=== PATIENT | male | born 1950 | race African-American/Black ===

== ENCOUNTER 2016-09-13 14:56 | Emergency (ER) | payer OTHER, SELFPAY ==
[~2016-09-13 14:56] MED LIST: ALPRAZOLAM0.5 M2 PO; LORAZEPAM0.5 MG PO; NORCO 10/3251 TAB PO; NORCO 5/325 TAB1 TAB PO; PHENERGAN25 MG PO
[2016-09-13] MEDS ORDERED: HYDROCODON-ACE1 EA16 PO (15:18)
== END 2016-09-13 17:55 ==
LOC: EDMED 14:56
DX: G43.909 Migraine, unspecified, not intractable, without status migrainosus (principal); I10 Essential (primary) hypertension; Z90.89 Acquired absence of other organs; Z79.899 Other long term (current) drug therapy; F17.210 Nicotine dependence, cigarettes, uncomplicated
CPT/HCPCS: J1200; J1885; J2765; J7030

== ENCOUNTER 2016-10-04 21:01 | Inpatient (IN) | payer OTHER ==
[~2016-10-04 21:01] MED LIST changes: +HYDROCODON-ACE1 EA16 PO
[2016-10-04 21:24] LABS: BASO % 0.1 % (0-2); CARBON DIOXIDE-VENOUS 27 mmol/L (21-33); CREATININE 1.11 mg/dl (0.67-1.17); EOS % 0.9 % (0-7); EOSINOPHIL ABSOLUTE COUNT 0.1 tho/cmm (0.0-0.7); GLUCOSE 106 mg/dl (65-120); HCT-HEMATOCRIT 42.6 % (36.0-53.5); HGB-HEMOGLOBIN 14.8 gm/dl (13.5-17.0); IMMATURE GRANULOCYTES ABSOLUTE 0.03 tho/cmm (0-0.03); IMMATURE GRANULOCYTES PERCENT 0.3 % (0-0.3); LYMPH % 26.1 % (20-45); LYMPH ABSOLUTE COUNT 2.5 tho/cmm (0.8-4.5); MCH (MEAN CORPUSCULAR HGB) 29.6 pg (28.0-32.0); MCHC MEAN CORPUSCULAR HGB CONC 34.7 % (32.0-36.0); MCV (MEAN CELL VOLUME) 85.2 fl (82.0-96.0); MEAN PLATELET VOLUME 9.9 cmc (9.4-12.4); MONO % 6.9 % (0-12); MONOCYTE ABSOLUTE COUNT 0.7 tho/cmm (0.0-1.2); NEUTROPHIL ABSOLUTE COUNT 6.2 tho/cmm (1.6-8.0); NEUTROPHIL-AUTOMATED 6.2 tho/cmm (1.6-8.0); NEUTROPHILS % 65.7 % (40-80); PLATELET COUNT 202 tho/cmm (150-450); POTASSIUM 3.7 mmol/L (3.5-5.3); RED CELL DISTRIBUTION WIDTH 14.1 % (12.4-16.4); SODIUM 137 mmol/L (135-146); WHITE BLOOD COUNT 9.4 tho/cmm (4.0-10.0); eGFR VALUE FOR BLACK 81 mL/Min
[2016-10-04 21:27] LABS: PROTHROMBIN TIME 11.8 SECONDS (9.0-13.6)
[2016-10-04 21:33] LABS: ANION GAP 11 mmol/L (0-20); BLOOD UREA NITROGEN 15 mg/dl (6-24); CALCIUM 8.9 mg/dl (8.5-10.5); CHLORIDE 103 mmol/l (96-110)
[2016-10-04 21:37] LABS: MAGNESIUM 2.2 mg/dl (1.8-2.6)
[2016-10-04 21:43] LABS: ALB/GLOB RATIO 0.7 (0.8-2.0); ALBUMIN 3.3 g/dl (3.5-5.0); ALKALINE PHOSPHATASE 112 U/L (33-138); BILIRUBIN,TOTAL 0.6 mg/dl (0.0-1.5)
[2016-10-04 21:44] LABS: ALT/SGPT 25 U/L (12-78); AST/SGOT 13 U/L (10-40); ESR-ERYTHROCYTE SED RATE 8 mm/hr (0-20)
[2016-10-04 21:50] LABS: TSH-THYROID STIMULATING HORM. 2.14 uIU/ml (0.40-3.80)
[2016-10-04 23:12] LABS: URINE BILIRUBIN NEGATIVE (NEG); URINE BLOOD SMALL (NEG); URINE GLUCOSE (UA) NEGATIVE (NEG); URINE KETONE NEGATIVE (NEG); URINE LEUKOCYTE ESTERASE NEGATIVE (NEG); URINE NITRITE NEGATIVE (NEG); URINE PROTEIN SMALL (NEG)
[2016-10-04 23:13] LABS: URINE APPEARANCE SLIGHTLY HAZY; URINE COLOR YELLOW
[2016-10-04 23:25] LABS: URINE BACTERIA 1+; URINE EPITHELIAL CELLS 0-1 /[HPF] (0-10); URINE WBC 0 /[HPF] (0-5)
[2016-10-05] MEDS ORDERED: NO HOME MEDICATION (01:25)
[2016-10-06] MEDS ORDERED: PLAVIX75 M1 PO (11:35)
[2016-10-06] MEDS ORDERED: ATORVASTATIN CA80 M1 PO (11:36)
[2016-10-06] MEDS ORDERED: LOTENSIN20 M1 PO (11:37)
[2016-10-06] MEDS ORDERED: NORVASC10 M2 PO (11:37)
[2016-10-06] MEDS ORDERED: ZITHROMAX250 M1 PO (11:38)
== END 2016-10-06 13:05 | DRG 64 ==
LOC: EDMED 21:01 → EMR2 10-05 00:06 → 5EB 10-05 00:40
PROVIDERS: Emergency Medicine; ADMIT Internal Medicine
PROC: 5A09357 Assistance with Respiratory Ventilation, Less than 24 Consecutive Hours, Continuous Positive Airway Pressure (ICD-10-PCS; principal; 2016-10-05)
DX: I63.9 Cerebral infarction, unspecified (principal); J18.9 Pneumonia, unspecified organism; G81.94 Hemiplegia, unspecified affecting left nondominant side; R47.1 Dysarthria and anarthria; I10 Essential (primary) hypertension; F17.210 Nicotine dependence, cigarettes, uncomplicated; R29.810 Facial weakness
CPT/HCPCS: A9577; C8929; J0456; J0696; J1650; J7030; J7050

== ENCOUNTER 2016-10-07 11:17 | Inpatient (IN) | payer OTHER ==
[~2016-10-07 11:17] MED LIST changes: +ATORVASTATIN CA80 M1 PO; +LOTENSIN20 M1 PO; +NO HOME MEDICATION; +NORVASC10 M2 PO; +PLAVIX75 M1 PO; +ZITHROMAX250 M1 PO
[2016-10-07 12:50] LABS: BASO % 0.3 % (0-2); EOS % 1.1 % (0-7); EOSINOPHIL ABSOLUTE COUNT 0.1 tho/cmm (0.0-0.7); HCT-HEMATOCRIT 43.3 % (36.0-53.5); HGB-HEMOGLOBIN 14.9 gm/dl (13.5-17.0); IMMATURE GRANULOCYTES ABSOLUTE 0.03 tho/cmm (0-0.03); IMMATURE GRANULOCYTES PERCENT 0.5 % (0-0.3); LYMPH % 26.2 % (20-45); LYMPH ABSOLUTE COUNT 1.6 tho/cmm (0.8-4.5); MCH (MEAN CORPUSCULAR HGB) 29.3 pg (28.0-32.0); MCHC MEAN CORPUSCULAR HGB CONC 34.4 % (32.0-36.0); MCV (MEAN CELL VOLUME) 85.2 fl (82.0-96.0); MEAN PLATELET VOLUME 9.7 cmc (9.4-12.4); MONOCYTE ABSOLUTE COUNT 0.6 tho/cmm (0.0-1.2); NEUTROPHIL ABSOLUTE COUNT 3.9 tho/cmm (1.6-8.0); NEUTROPHIL-AUTOMATED 3.9 tho/cmm (1.6-8.0); NEUTROPHILS % 62.9 % (40-80); PLATELET COUNT 247 tho/cmm (150-450); RED BLOOD COUNT 5.08 mil/cmm (4.40-5.70); RED CELL DISTRIBUTION WIDTH 13.8 % (12.4-16.4); WHITE BLOOD COUNT 6.2 tho/cmm (4.0-10.0)
[2016-10-07 13:11] LABS: ALB/GLOB RATIO 0.7 (0.8-2.0); ALBUMIN 3.4 g/dl (3.5-5.0); ALKALINE PHOSPHATASE 113 U/L (33-138); ALT/SGPT 26 U/L (12-78); ANION GAP 14 mmol/L (0-20); AST/SGOT 19 U/L (10-40); BILIRUBIN,TOTAL 0.8 mg/dl (0.0-1.5); BLOOD UREA NITROGEN 14 mg/dl (6-24); CALCIUM 9.4 mg/dl (8.5-10.5); CARBON DIOXIDE-VENOUS 24 mmol/L (22-32); CHLORIDE 105 mmol/l (96-110); CREATININE 1.02 mg/dl (0.60-1.30); GLUCOSE 89 mg/dL (70-110); POTASSIUM 4.2 mmol/L (3.7-5.1); SODIUM 139 mmol/L (135-145); eGFR VALUE FOR BLACK 90 mL/Min
[2016-10-07 14:22] LABS: INR 1.1 INR (0.9-1.1); PROTHROMBIN TIME 12.4 SECONDS (9.0-13.6)
[2016-10-08 04:30] LABS: BASO % 0.6 % (0-2); EOSINOPHIL ABSOLUTE COUNT 0.1 tho/cmm (0.0-0.7); HCT-HEMATOCRIT 41.6 % (36.0-53.5); HGB-HEMOGLOBIN 14.3 gm/dl (13.5-17.0); IMMATURE GRANULOCYTES ABSOLUTE 0.01 tho/cmm (0-0.03); IMMATURE GRANULOCYTES PERCENT 0.2 % (0-0.3); LYMPH % 38.3 % (20-45); LYMPH ABSOLUTE COUNT 1.9 tho/cmm (0.8-4.5); MCH (MEAN CORPUSCULAR HGB) 29.2 pg (28.0-32.0); MCHC MEAN CORPUSCULAR HGB CONC 34.4 % (32.0-36.0); MCV (MEAN CELL VOLUME) 85.1 fl (82.0-96.0); MEAN PLATELET VOLUME 9.9 cmc (9.4-12.4); MONO % 8.1 % (0-12); MONOCYTE ABSOLUTE COUNT 0.4 tho/cmm (0.0-1.2); NEUTROPHIL ABSOLUTE COUNT 2.5 tho/cmm (1.6-8.0); NEUTROPHIL-AUTOMATED 2.5 tho/cmm (1.6-8.0); NEUTROPHILS % 50.8 % (40-80); PLATELET COUNT 248 tho/cmm (150-450); RED BLOOD COUNT 4.89 mil/cmm (4.40-5.70); RED CELL DISTRIBUTION WIDTH 13.7 % (12.4-16.4); WHITE BLOOD COUNT 4.9 tho/cmm (4.0-10.0)
[2016-10-09 20:50] LABS: PLATELET COUNT 257 tho/cmm (150-450)
[2016-10-10] MEDS ORDERED: ASPIRIN EC81 MG PO (09:53)
[2016-10-10] MEDS ORDERED: HYDROCHLOROTH12.5 M2 PO (09:54)
== END 2016-10-10 13:37 | DRG 65 ==
LOC: EDMED 11:17 → EMR2 13:47 → 5EB 17:04
PROVIDERS: Nurse Practitioner Family; ADMIT Hospitalist
DX: I63.9 Cerebral infarction, unspecified (principal); I69.354 Hemiplegia and hemiparesis following cerebral infarction affecting left non-dominant side; G81.94 Hemiplegia, unspecified affecting left nondominant side; I10 Essential (primary) hypertension; I69.392 Facial weakness following cerebral infarction; Z79.02 Long term (current) use of antithrombotics/antiplatelets; Z88.8 Allergy status to other drugs, medicaments and biological substances; Z79.01 Long term (current) use of anticoagulants; Z87.891 Personal history of nicotine dependence; E78.5 Hyperlipidemia, unspecified
CPT/HCPCS: A9577; G8978-GP-CJ; G8979-GP-CI; J1644; J7030

== ENCOUNTER 2016-10-10 19:47 | Observation (INO) | payer OTHER, SELFPAY ==
[~2016-10-10 19:47] MED LIST changes: +ASPIRIN EC81 MG PO; +HYDROCHLOROTH12.5 M2 PO
[2016-10-10 20:45] LABS: BASO % 0.9 % (0-2); BASO ABSOLUTE COUNT 0.1 tho/cmm (0.0-0.2); EOS % 1.8 % (0-7); EOSINOPHIL ABSOLUTE COUNT 0.1 tho/cmm (0.0-0.7); IMMATURE GRANULOCYTES ABSOLUTE 0.01 tho/cmm (0-0.03); IMMATURE GRANULOCYTES PERCENT 0.2 % (0-0.3); LYMPH % 29.9 % (20-45); LYMPH ABSOLUTE COUNT 1.7 tho/cmm (0.8-4.5); MCH (MEAN CORPUSCULAR HGB) 29.5 pg (28.0-32.0); MCHC MEAN CORPUSCULAR HGB CONC 34.8 % (32.0-36.0); MCV (MEAN CELL VOLUME) 84.9 fl (82.0-96.0); MEAN PLATELET VOLUME 9.8 cmc (9.4-12.4); MONO % 5.2 % (0-12); MONOCYTE ABSOLUTE COUNT 0.3 tho/cmm (0.0-1.2); NEUTROPHIL ABSOLUTE COUNT 3.5 tho/cmm (1.6-8.0); NEUTROPHIL-AUTOMATED 3.5 tho/cmm (1.6-8.0); PLATELET COUNT 296 tho/cmm (150-450); RED BLOOD COUNT 5.42 mil/cmm (4.40-5.70); RED CELL DISTRIBUTION WIDTH 13.3 % (12.4-16.4); WHITE BLOOD COUNT 5.6 tho/cmm (4.0-10.0)
[2016-10-10 21:02] LABS: ALB/GLOB RATIO 0.8 (0.8-2.0); ALBUMIN 3.9 g/dl (3.5-5.0); ALKALINE PHOSPHATASE 153 U/L (33-138); ALT/SGPT 42 U/L (12-78); ANION GAP 14 mmol/L (0-20); AST/SGOT 31 U/L (10-40); BILIRUBIN,TOTAL 0.6 mg/dl (0.0-1.5); BLOOD UREA NITROGEN 13 mg/dl (6-24); CALCIUM 9.7 mg/dl (8.5-10.5); CARBON DIOXIDE-VENOUS 25 mmol/L (22-32); CHLORIDE 102 mmol/l (96-110); CKMB 1.9 ng/ml (<3.6); CREATININE 1.07 mg/dl (0.60-1.30); GLUCOSE 86 mg/dL (70-110); POTASSIUM 3.8 mmol/L (3.7-5.1); SODIUM 137 mmol/L (135-145); eGFR VALUE FOR BLACK 85 mL/Min
[2016-10-10 21:32] LABS: CREATINE PHOSPHOKINASE (CPK) 367 U/L (35-232)
[2016-10-14 07:04] LABS: HGB-HEMOGLOBIN 15.2 gm/dl (13.5-17.0); PLATELET COUNT 263 tho/cmm (150-450)
== END 2016-10-14 15:30 | disposition home health service (06) ==
LOC: EDMED 19:47 → EMR2 23:13 → 5EB 10-11 11:31
PROVIDERS: Emergency Medicine; Internal Medicine; ADMIT Family Medicine
DX: Z74.2 Need for assistance at home and no other household member able to render care (principal); I63.9 Cerebral infarction, unspecified; G81.94 Hemiplegia, unspecified affecting left nondominant side; I10 Essential (primary) hypertension; E78.5 Hyperlipidemia, unspecified; G43.909 Migraine, unspecified, not intractable, without status migrainosus; F17.210 Nicotine dependence, cigarettes, uncomplicated; Z91.19 Patient's noncompliance with other medical treatment and regimen; Z79.02 Long term (current) use of antithrombotics/antiplatelets; Z79.82 Long term (current) use of aspirin; Z79.899 Other long term (current) drug therapy; Z88.8 Allergy status to other drugs, medicaments and biological substances; Z90.89 Acquired absence of other organs; Z98.890 Other specified postprocedural states
CPT/HCPCS: G0378; G8978-GP-CK; G8979-GP-CK; G8987-GO-CJ; G8988-GO-CH; J1650